=== PATIENT | male | born 1990 | race Caucasian/White ===

== ENCOUNTER 2017-02-13 16:02 | Emergency (ER) | payer OTHER ==
[2017-02-13 16:23] VITALS: BP 124/86
== END 2017-02-13 16:49 | disposition other institution (70) ==
LOC: ED 16:02
DX: Z02.89 Encounter for other administrative examinations (principal)

== ENCOUNTER 2017-08-05 18:41 | Emergency (ER) | payer OTHER ==
[~2017-08-05] VITALS: Ht 177.8 cm; Wt 90.7 kg
[2017-08-05 18:58] VITALS: Ht 177.8 cm; Wt 90.7 kg
[2017-08-05 21:00] VITALS: BP 125/93
== END 2017-08-05 21:00 | disposition home or self-care (01) ==
LOC: ED 18:41
DX: G47.00 Insomnia, unspecified (principal); F31.9 Bipolar disorder, unspecified
CPT/HCPCS: 83880